=== PATIENT | male | born 1990 | race Caucasian/White ===

== ENCOUNTER 2017-10-01 17:04 | Emergency (ER) | payer OTHER ==
[2017-10-01 17:28] LABS: Bilirubin Negative (Negative); Blood, Urine Negative (Negative); Clarity Clear (Clear); Glucose, Urine (Dipstick) Negative (Negative); Leukocyte Negative (Negative); Nitrite Negative (Negative); Protein, Urine (Dipstick) Negative (Neg-Trace); Specific Gravity, Urine 1.025 (1.005-1.030); Urobilinogen 0.2 mg/dL (0.2-1.0); pH, Urine 6.5 (5.0-9.0)
--- NOTE | 2017-10-01 18:12 | CT ---
NONCONTRAST CT ABDOMEN AND PELVIS: 10/01/17 HISTORY: Right lower quadrant abdominal pain that started two to three hours ago. Pain started suddenly when p atedmond was driving. COMPARISON: None available. FINDINGS: There is linear scarring versus atelectasis in the right middle lobe. Lung bases are otherwise clear. The liver, spleen, pancreas, bilateral adrenal glands, bilateral kidneys, and partially distended uri nary bladder demonstrate a normal CT appearance. No renal or ureteral calculi are seen bilaterally, a nd there is no hydronephrosis present. Lack of intravenous contrast does limit sensitivity for evalua tion of the parenchymal organs. The appendix is borderline in size measuring approximately 8 mm. No definitive periappendiceal inflam matory change are appreciated. While dilated appendix can be seen with appendicitis, this can also be a normal finding, especially in the absence of additional clinical symptoms suggesting appendicitis. There is no free fluid or fluid collections seen in the abdomen or pelvis. IMPRESSION: 1. The appendix is mildly dilated. While this can be a normal finding, and normal for the patien t, dilated appendix can also be seen with appendicitis. However, there are no additional secondary si gns to suggest appendicitis such as periappendiceal inflammatory changes or definitive cecal apical t hickening on this exam. Clinical correlation is recommended. 2. No renal or ureteral calculi are seen bilaterally. 3. Very small fat containing umbilical hernia. POS: [facility]
[2017-10-01 18:27] LABS: #Basophils 0.1 thou/uL (0.0-0.2); #Eosinphils 0.1 thou/uL (0.0-0.7); #Lymphocytes 1.6 thou/uL (1.20-3.40); #Monocytes 0.5 thou/uL (0.11-0.59); #Neutrophils 8.3 thou/uL (1.40-6.50); %Basophils 0.6 % (0.0-1.0); %Eosinophils 0.9 % (0.0-10.0); %Lymphocytes 15.3 % (21.0-51.0); %Neutrophils 78.2 % (42.0-75.0); Hemoglobin 14.1 g/dL (14.0-18.0); Mean Corpuscular Hemoglobin 31.8 pg (27.0-31.0); Mean Corpuscular Volume 88.4 fl (80.0-94.0); Mean Platelet Volume 7.4 fL (7.4-10.4); Platelet Count 211 thou/uL (130-400); RBC Distribution Width 11.4 % (11.5-14.5); Red Blood Cell (RBC) Count 4.42 mill/uL (4.70-6.10); White Blood Cell (WBC) Count 10.6 thou/uL (4.8-10.8)
[2017-10-01 18:43] LABS: ALT (SGPT) 26 U/L (8-55); AST (SGOT) 23 U/L (5-34); Albumin 4.3 g/dL (3.5-5.0); Alkaline Phosphatase 66 U/L (40-150); Anion Gap 12 mmol/L (10-20); BUN (Urea Nitrogen) 24 mg/dL (8.9-20.6); Bilirubin, Total 0.4 mg/dL (0.2-1.2); Calc. Creatinine Clearance 0 mL/min (70-130); Carbon Dioxide 26 mmol/L (22-29); Chloride 106 mmol/L (98-107); Estimated GFR-MDRD Greater than 90; Globulin 2.9 g/dL (2.4-3.5); Glucose 91 mg/dL (70-105); Lipase 24 U/L (8-78); Potassium 4.3 mmol/L (3.5-5.1); Protein, Total 7.2 g/dL (6.0-8.3); Sodium 140 mmol/L (136-145)
== END 2017-10-01 19:18 | disposition home or self-care (01) ==
LOC: SCSER 17:04
DX: R10.31 Right lower quadrant pain (principal)
CPT/HCPCS: 74176; 80053; 81003; 83690; 85025; 96360